=== PATIENT | female | born 1940 | race Caucasian/White ===

== ENCOUNTER 2020-11-29 02:37 | Emergency (ER) | payer MEDICARE, OTHER ==
[~2020-11-29] VITALS: Ht 152.4 cm; Wt 115.9 kg
[2020-11-29] MEDS ORDERED: IV NORMAL SALINE 1000ML BAG 1,000 ML IV SCH (03:15)
--- NOTE | 2020-11-29 03:51 | PHYS DOC ---
Past Medical History Past Medical History: No Pertinent History Past Surgical History: No Surgical History Smoking Status: Never Smoker Alcohol Use: None General Adult EDM: Chief Complaint: MECHANICAL FALL HPI: HPI: 80-year-old female presents to the ED from home brought in by EMS with concern for fall out of bed. Patient reports she lives in apartment building with her daughter who is in a different apartment in the same building. Reports she was recently admitted to the hospital and has difficulties talking. Is worried she has had a stroke but then states "I have a problem with my words." States she has felt tired the past two days. Slid out of her bed but didn't hit her head, no LOC. Patient's daughter who lives in the building is later present in ED, (patient consents to his/her/their knowledge and involvement in pts' medical care). Daughter reports patients' speech has not changed and she is at her baseline mental status. Review of Systems: Review of Systems: Constitutional: Denies fever or chills. [] Eyes: Denies change in visual acuity or red eye HENT: Denies nasal congestion or sore throat. [] Respiratory: Denies cough or shortness of breath. [] Cardiovascular: Denies chest pain or edema. [] GI: Denies nausea, vomiting, or abdominal plain : Denies dysuria or hematuria Musculoskeletal: Denies midline back pain or joint pain. [] Integument: Denies rash or diaphoresis Neurologic: Denies headache, neck pain, focal weakness or sensory changes. [] Endocrine: Denies polyuria or polydipsia. [] Lymphatic: Denies swollen glands. [] Psychiatric: Denies depression or anxiety. [] Heart Score: C/O Chest Pain: N/A Risk Factors: Risk Factors: DM, Current or recent (<one month) smoker, HTN, HLP, family history of CAD, obesity. Risk Scores: Score 0 - 3: 2.5% MACE over next 6 weeks - Discharge Home Score 4 - 6: 20.3% MACE over next 6 weeks - Admit for Clinical Observation Score 7 - 10: 72.7% MACE over next 6 weeks - Early Invasive Strategies Current Medications: Current Medications Medications (Trade) Dose Ordered Sig/Radha Start Time Stop Time Status Last Admin Dose Admin Sodium Chloride 1,000 ml @ 1,000 mls/hr Q1H 11/29/20 03:15 11/29/20 04:14 Allergies: Allergies: Allergies Coded Allergies Type Severity Reaction Last Updated Verified Penicillins Allergy Intermediate 11/29/20 Yes Sulfa (Sulfonamide Antibiotics) Allergy Intermediate 11/29/20 Yes Physical Exam: PE: Constitutional: Well developed, well nourished, no acute distress, non-toxic appearance, sleeping, HENT: Normocephalic, atraumatic, no signs of head trauma Eyes: PERRLA, EOMI, conjunctiva normal, no discharge. Neck: Normal range of motion, supple, no midline tenderness Cardiovascular: S1/2 present, regular rhythm Lungs & Thorax: bilateral equal chest rise, no tachypnea or increased work of breathing Abdomen: soft, no tenderness, Skin: Warm, dry, Back: No midline step-offs or tenderness, no CVA tenderness. [] Extremities: No tenderness, no cyanosis, Neurologic: Patient has some aphasia /difficulties getting words out, alert, n Psychologic: Affect normal, judgement normal, mood normal. [] Current Patient Data: Vital Signs: Vital Signs Date Time Temp Pulse Resp B/P (MAP) Pulse Ox O2 Delivery O2 Flow Rate FiO2 11/29/20 02:55 98.1 82 18 181/67 (105) 93 Room Air 98.1 EKG: EKG: Sinus rhythm at 70 bpm, left axis deviation, normal intervals, no T wave i nversion, no ST elevations or ST depressions Radiology/Procedures: Radiology/Procedures: IMAGING REPORT Signed PATIENT: NICOLE FRYE ACCOUNT: [id number] : 1940 LOCATION: ER AGE: 80 SEX: F EXAM STATUS: REG ER ORD. PHYSICIAN: SANJANA QUIROZ DO REASON: ams PROCEDURE: CT HEAD AND CERVICAL SPINE WO Chest AP portable at 0351: Reason for examination: Altered mental status with aphasia. Heart size is upper normal. Mediastinum is unremarkable. Lung mcgarry show no gross infiltrates or pleural effusions. There is some mild prominence of the p ulmonary vasculature which may reflect some mild congestion. No acute bony abnormalities are seen. IMPRESSION: Mild prominence of the pulmonary vasculature which may reflect some mild congestion. No consolidated infiltrates or pleural effusions seen. Pelvis single AP view portable at 0347: No fracture is seen. The bone density is normal. No abnormality seen at the sacrum or sacroiliac joints. Proximal femur are intact. Hip joints are maintained. IMPRESSION: No acute bony abnormality in the pelvis. CT head without contrast: Helical images were obtained through the brain. No contrast was administered. Reconstruction was performed in sagittal and coronal planes. Ventricular systems are symmetric and not abnormally dilated. There appears to be a small chronic lacunar in the right basal ganglia region. No intracranial hemorrhage, acute infarct, mass or edema is evident. No acute abnormalities are seen at the orbits. The paranasal sinuses and mastoid air cells are clear. No acute abnormality seen in the skull. IMPRESSION: No acute intracranial abnormality evident. CT cervical spine without contrast: Helical images were obtained through the cervical spine from skull base through the thoracic apices with no contrast administered. Reconstruction was performed in sagittal and coronal planes. The C1 ring is intact. The odontoid process appears to be intact and normally centered between the lateral masses of C1. The vertebral bodies of the cervical spine are normally aligned anteriorly and posteriorly. No acute fracture or subluxation is evident. The posterior elements are intact. The intervertebral discs are fairly well-maintained with some hypertrophic spurring seen off the anterior endplates at the C5-6 level. Prevertebral soft tissues are normal. No site of significant stenosis is evident. IMPRESSION: Mild degenerative changes. No acute abnormality in the cervical spine. Exposure: One or more of the following individualized dose reduction techniques were utilized for this examination: 1. Automated exposure control 2. Adjustment of the mA and/or kV according to patient size 3. Use of iterative reconstruction technique. Electronically signed by: Jose Fuentes MD (11/29/2020 4:06 AM) [facility] DICTATED and SIGNED BY: JOSE FUENTES MD DATE: 11/29/20 [id number] 0 Course & Med Decision Making: Course & Med Decision Making Pertinent Labs and Imaging studies reviewed. (See chart for details) Concern for weakness after prior stroke with no new focal deficits per patient and daughter's history. Pt w/no confusion, asymptomatic hypertension. I reviewed emr but cannot find prior stroke history/ED visit (different mrn?). Patient with UTI, is asymptomatic and mildly dehydrated on physical exam. Fosfomycin treated in ED. Daughter feels safe to have patient return home. Will discharge home with strict ED return precautions were given for repeat head injury, new focal neurologic deficits, bleeding or altered mental status. Encouraged urgent outpatient follow-up with PMD and nephrology as needed for abnormal renal function. Life-threatening processes were considered but are low suspicion at this time, given history, physical exam and ED workup. Pt was educated on all prescription medications and adverse effects. All patient's questions were answered and pt was stable at time of discharge. Life/limb-threatening differential includes but is not limited to, intracranial hemorrhage, diffuse axonal injury, spinal cord syndrome, unstable cervical f racture or SCIWORA, fractures or joint dislocations, neurovascular injuries, organ injury or laceration, pneumothorax, pneumoperitoneum, pericardial tamponade, unstable pelvic fracture, compartment syndrome, flail chest or respiratory distress, burn injury or asphyxiation I spoken with the patient and her caregivers. I explained the patient's condition, diagnoses and treatment plan based on the information available to me at this time. I have answered the patient and her caregiver's questions and addressed any concerns. The patient and her caregivers have a good understanding of patient's diagnosis, condition and treatment plan as can be expected at this point. Vital signs have been stable. Patient's condition is stable and appropriate for discharge from the emergency department. Patient will pursue further outpatient evaluation with primary care physician or other designated or consulting physician as outlined in the discharge instructions. The patient and/or caregivers are agreeable to this plan of care and follow-up instructions have been explained in detail. The patient and/or caregivers have received these instructions in written form and have expressed an understanding of the discharge instructions. The patient and/or caregivers are aware that any significant change of condition or worsening of symptoms should prompt immediate return to this or the closest emergency department or call to 911. Roc Disclaimer: Roc Disclaimer: This electronic medical record was generated, in whole or in part, using a voice recognition dictation system. Departure Departure Impression: Primary Impression: Accidental fall from bed Additional Impressions: UTI (urinary tract infection) Renal insufficiency Disposition: HOME / SELF CARE / HOMELESS Condition: STABLE Referrals: ELADIO SHEPPARD MD (PCP) within 7 days for re-evaluation, repeat urinalysis, potassium was 3.2 and BUN/CR were 36/1.3 Patient Instructions: Fall Prevention and Home Safety, Kidney Failure, Urinary Tract Infection Additional Instructions: FOLLOW UP WITH NEPHROLOGY: FOR DEFINITIVE MANAGEMENT [place] [address] [place]. [address] [place] [id number] EMERGENCY DEPARTMENT GENERAL DISCHARGE INSTRUCTIONS Thank you for coming to [facility] Emergency Department (ED) today and trusting us with you care. We trust that you had a positive experience in our Emergency Department. If you wish to speak to the department management, you may call the Director at [phone]. YOUR FOLLOW UP INSTRUCTIONS ARE FOLLOWS: 1. Do you have a private Doctor? If you do not have a private doctor, please ask for a resource list of physicians or clinics that may be able to assist you with follow up care. 2. The Emergency Physicain has interpreted your x-rays. The X-Ray specialist will also review them. If there is a change in the findings, you will be notified in 48 hours when at all possible. 3. A lab test or culture has been done, your results will be reviewed and you will be notified if you need a change in treatment. ADDITIONAL INSTRUCTIONS AND INFORMATION: 1. Your care today has been supervised by a physician who is specially trained in emergency care. Many problems require more than one evaluation for a complete diagnosis and treatment. We recommend that you schedule your follow up appointment as recommended to ensure complete treatment of you illness or injury. If you are unable to obtain follow up care and continue to have a problem, or if your condition worsens, we recommend that you return to the ED. 2. We are not able to safely determine your condition over the phone nor are we able to give sound medical advice over the phone. For these safety reasons, if you call for medical advice we will ask you to come to the ED for further evaluation. 3. If you have any questions regarding these discharge instructions please call the ED at [phone]. SAFETY INFORMATION: In the interest of safety, wellness, and injury prevention; we encourage you to wear your sealbelt, if you smoke; quite smoking, and we encourage family to use a protective helmet for bicycling and other sporting events that present an increased risk for head injury. IF YOUR SYMPTOMS WORSEN OR NEW SYMPTOMS DEVELOP, OR YOU HAVE CONCERNS ABOUT YOUR CONDITION; OR IF YOUR CONDITION WORSENS WHILE YOU ARE WAITING FOR YOUR FOLLOW UP APPOINTMENT; EITHER CONTACT YOUR PRIMARY CARE DOCTOR, THE PHYSICIAN WHOSE NAME AND NUMBER YOU WERE GIVEN, OR RETURN TO THE ED IMMEDIATELY. SANJANA QUIROZ DO Nov 29, 2020 03:51
--- NOTE | 2020-11-29 04:09 | RAD ---
Chest AP portable at 0351: Reason for examination: Altered mental status with aphasia. Heart size is upper normal. Mediastinum is unremarkable. Lung mcgarry show no gross infiltrates or ple ural effusions. There is some mild prominence of the pulmonary vasculature which may reflect some mil d congestion. No acute bony abnormalities are seen. IMPRESSION: Mild prominence of the pulmonary vasculature which may reflect some mild congestion. No consolidated infiltrates or pleural effusions seen. Pelvis single AP view portable at 0347: No fracture is seen. The bone density is normal. No abnormality seen at the sacrum or sacroiliac join ts. Proximal femur are intact. Hip joints are maintained. IMPRESSION: No acute bony abnormality in the pelvis. CT head without contrast: Helical images were obtained through the brain. No contrast was administered. Reconstruction was perf ormed in sagittal and coronal planes. Ventricular systems are symmetric and not abnormally dilated. There appears to be a small chronic lac unar in the right basal ganglia region. No intracranial hemorrhage, acute infarct, mass or edema is e vident. No acute abnormalities are seen at the orbits. The paranasal sinuses and mastoid air cells ar e clear. No acute abnormality seen in the skull. IMPRESSION: No acute intracranial abnormality evident. CT cervical spine without contrast: Helical images were obtained through the cervical spine from skull base through the thoracic apices w ith no contrast administered. Reconstruction was performed in sagittal and coronal planes. The C1 ring is intact. The odontoid process appears to be intact and normally centered between the la teral masses of C1. The vertebral bodies of the cervical spine are normally aligned anteriorly and po steriorly. No acute fracture or subluxation is evident. The posterior elements are intact. The interv ertebral discs are fairly well-maintained with some hypertrophic spurring seen off the anterior endpl ates at the C5-6 level. Prevertebral soft tissues are normal. No site of significant stenosis is evid ent. IMPRESSION: Mild degenerative changes. No acute abnormality in the cervical spine. Exposure: One or more of the following individualized dose reduction techniques were utilized for thi s examination: 1. Automated exposure control 2. Adjustment of the mA and/or kV according to patient size 3. Use of iterative reconstruction technique. Electronically signed by: Alisa Corcoran MD (11/29/2020 4:06 AM) [facility]
[2020-11-29 04:11] LABS: BASO % 1 % (0-3); EOS # 0.1 x10^3/uL (0.0-0.7); EOS % 2 % (0-3); HEMATOCRIT 36.2 % (36.0-47.0); HEMOGLOBIN 12.2 g/dL (12.0-15.5); LYMPH # 1.6 x10^3/uL (1.0-4.8); LYMPH % 23 % (24-48); MEAN CORPUSCULAR HEMOGLOBIN 31 pg (25-35); MEAN CORPUSCULAR HGB CONC 34 g/dL (31-37); MEAN CORPUSCULAR VOLUME 93 fL (79-100); MONO # 0.6 x10^3/uL (0.0-1.1); MONO % 8 % (0-9); NEUT # 4.5 x10^3/uL (1.8-7.7); NEUT % 66 % (31-73); PLATELET COUNT 165 x10^3/uL (140-400); RED BLOOD COUNT 3.88 x10^6/uL (3.50-5.40); RED CELL DISTRIBUTION WIDTH 14.2 % (11.5-14.5); WHITE BLOOD COUNT 6.9 x10^3/uL (4.0-11.0)
[2020-11-29 05:20] LABS: CALCIUM 9.8 mg/dL (8.5-10.1); CREATININE 1.3 mg/dL (0.6-1.0); GFR 39.3; POTASSIUM 3.2 mmol/L (3.5-5.1)
[2020-11-29 05:22] LABS: BILIRUBIN,URINE NEGATIVE (NEG); CLARITY,URINE CLOUDY; COLOR,URINE YELLOW; NITRITE,URINE NEGATIVE (NEG); PROTEIN,URINE NEGATIVE (NEG-TRACE)
[2020-11-29 05:26] LABS: ALBUMIN 3.3 g/dL (3.4-5.0); MAGNESIUM 1.8 mg/dL (1.8-2.4); TOTAL PROTEIN 6.7 g/dL (6.4-8.2)
[2020-11-29 05:29] LABS: BACTERIA,URINE FEW /HPF (0-FEW); RBC,URINE 0 /HPF (0-2)
[2020-11-29 05:31] LABS: BARBITURATES NEG (NEG); BENZODIAZEPINES NEG (NEG); CANNABINOIDS NEG (NEG); COCAINE NEG (NEG); METHADONE NEG (NEG); OPIATES NEG (NEG); PHENCYCLIDINE NEG (NEG)
[2020-11-29 05:32] LABS: AMPHETAMINE/METHAMPHETAMINE NEG (NEG)
[2020-11-29 05:44] VITALS: BP 180/75
[2020-11-29] MEDS ORDERED: POTASSIUM CHLORIDE 20 MEQ TABLET.ER. PO ONE (05:45)
[2020-11-29] MEDS ORDERED: FOSFOMYCIN TROMETHAMINE 3 GM PACKET PO ONE (05:45)
--- NOTE | 2020-11-29 05:54 | EKG ---
[facility] [address] [place] [id number] Test Date: 2020-11-29 Test Time: 03:27:48 Pat Name: NICOLE FRYE Department: Room: Gender: F Police Dispatcher: : 1940 Requested By: SANJANA QUIROZ Order Number: [id number] Reading MD: Measurements Intervals [place] Rate: 79 P: -116 MN: 138 QRS: -13 QRSD: 88 T: 38 QT: 388 QTc: 446 Interpretive Statements SUPRAVENTRICULAR RHYTHM LEFTWARD AXIS QRS(T) CONTOUR ABNORMALITY CONSISTENT WITH ANTEROSEPTAL INFARCT AGE UNDETERMINED ABNORMAL ECG RI6.01 No previous ECG available for comparison
[2020-11-30] MEDS ORDERED: ACET325T21 PO (18:16)
[2020-11-30] MEDS ORDERED: BUPR150T27 PO (18:36)
[2020-11-30] MEDS ORDERED: TRIA15OI TP (19:39)
[2020-11-30] MEDS ORDERED: FEBU40TA PO (19:39)
[2020-11-30] MEDS ORDERED: CYAN100031 PO (19:39)
[2020-11-30] MEDS ORDERED: HYDR25TA PO (19:39)
[2020-11-30] MEDS ORDERED: CLOP75TA PO (19:39)
[2020-11-30] MEDS ORDERED: CALC-614 PO (19:39)
[2020-11-30] MEDS ORDERED: ROSU10TA26 PO (19:39)
[2020-11-30] MEDS ORDERED: SERT50TA PO (19:39)
[2020-11-30] MEDS ORDERED: DICL20GE TP (19:39)
[2020-11-30] MEDS ORDERED: MECL-75 PO (19:39)
[2020-11-30] MEDS ORDERED: FENO145T3 PO (19:39)
[2020-11-30] MEDS ORDERED: LISI20TA18 PO (19:39)
[2020-11-30] MEDS ORDERED: CARV12.511 PO (19:39)
[2020-11-30] MEDS ORDERED: URSO300C26 PO (19:39)
[2020-11-30] MEDS ORDERED: LEVO5TAB29 PO (19:39)
[2020-11-30] MEDS ORDERED: FLUT16SP NS (19:39)
== END 2020-11-29 06:28 | disposition home or self-care (01) ==
LOC: ER 02:37
DX: N39.0 Urinary tract infection, site not specified (principal); N28.9 Disorder of kidney and ureter, unspecified; W06.XXXA Fall from bed, initial encounter; Y93.89 Activity, other specified; Y92.89 Other specified places as the place of occurrence of the external cause; Y99.8 Other external cause status
CPT/HCPCS: 99285; J7030; 36415; 70450; 71045; 72125; 72170; 80053; 80307; 81001; 83690; 83735; 83880; 84484; 85025; 87086; 93005; 96360